=== PATIENT | male | born 1940 | race Two or more races ===

== ENCOUNTER 2018-11-17 08:14 | Emergency (ER) | payer MEDICARE, OTHER ==
[~2018-11-17] VITALS: Ht 177.8 cm; Wt 82.2 kg
[~2018-11-17 08:14] MED LIST: ASPI-955 PO; CARV3.122 PO; LEVO112T5 PO; METF500T PO; MULT-1074 PO; SIMV20TA PO
[2018-11-17 09:12] LABS: BASOPHILS # (AUTO) 0.1 X10'3 (0-0.2); BASOPHILS % (AUTO) 1.5 % (0-1); EOSINOPHILS # (AUTO) 0.3 X10'3 (0-0.9); EOSINOPHILS % (AUTO) 5.8 % (0-6); HEMATOCRIT 45.8 % (42.0-52.0); HEMOGLOBIN 15.3 g/dl (14.0-17.9); LYMPHOCYTES # (AUTO) 0.7 X10'3 (1.1-4.8); LYMPHOCYTES % (AUTO) 13.9 % (21-51); MEAN CORPUSCULAR HEMOGLOBIN 30.4 PG (27.0-31.0); MEAN CORPUSCULAR HGB CONC 33.4 % (33.0-36.5); MEAN CORPUSCULAR VOLUME 90.8 FL (78-98); MEAN PLATELET VOLUME 6.4 FL (7.4-10.4); MONOCYTES # (AUTO) 0.4 X10'3 (0-0.9); MONOCYTES % (AUTO) 8.8 % (2-12); NEUTROPHILS # (AUTO) 3.5 X10'3 (1.8-7.7); PLATELET COUNT 245 X10'3 (140-440); RED BLOOD COUNT 5.04 X10'6 (4.70-6.10); RED CELL DISTRIBUTION WIDTH 14.1 % (11.5-14.5); WHITE BLOOD COUNT 4.9 X10'3 (4.5-11.0)
[2018-11-17 09:29] LABS: PARTIAL THROMBOPLASTIN TIME 26 SECONDS (22-32); PROTHROMBIN TIME 10.3 SECONDS (9.0-12.0)
[2018-11-17 09:36] LABS: ALANINE AMINOTRANSFERASE 24 U/L (12-78); ALBUMIN 3.9 G/DL (3.4-5.0); ALBUMIN/GLOBULIN RATIO 1.1 (1.1-1.5); ALKALINE PHOSPHATASE 69 IU/L (46-116); ANION GAP 7 (8-16); ASPARTATE AMINO TRANSFERASE 22 U/L (10-37); BILIRUBIN,TOTAL 0.5 MG/DL (0.1-1.0); BLOOD UREA NITROGEN 20 MG/DL (7-18); CALCIUM 8.7 MG/DL (8.5-10.1); CHLORIDE 104 MMOL/L (99-107); CREATININE 0.87 MG/DL (0.60-1.10); GLUCOSE 108 MG/DL (70-104); POTASSIUM 4.6 MMOL/L (3.5-5.1); SODIUM 141 MMOL/L (135-145); TOTAL CARBON DIOXIDE 30.2 MMOL/L (24-32); TOTAL PROTEIN 7.3 G/DL (6.4-8.2); eGFR 84 ML/MIN
[2018-11-17 10:58] VITALS: BP 145/67
== END 2018-11-17 11:00 | disposition home or self-care (01) ==
LOC: ER 08:14
DX: I95.1 Orthostatic hypotension (principal); I25.10 Atherosclerotic heart disease of native coronary artery without angina pectoris; E11.9 Type 2 diabetes mellitus without complications; Z95.1 Presence of aortocoronary bypass graft; Z95.0 Presence of cardiac pacemaker; Z98.890 Other specified postprocedural states; Z79.82 Long term (current) use of aspirin; Z79.899 Other long term (current) drug therapy
CPT/HCPCS: 36415; 71045; 80053; 83880; 84484; 85025; 85610; 85730; 93005; 99284

== ENCOUNTER 2020-09-07 14:41 | Inpatient (IN) | payer MEDICARE, OTHER ==
[~2020-09-07] VITALS: Ht 182.9 cm; Wt 75.7 kg
--- NOTE | 2020-09-07 15:35 | NUR ---
INCONTINENT OF URINE PER DAUGHTER, PT WALKED TO THE [employer] COURSE AND DROVE HIM BACK AND COULD NOT WALK UP STAIRS DAUGHTER GAVE HIM A SPRITE, EMS BLOOD GLUCOSE 136 Addendum: 09/07/20 at 1537 by CCLIFFORD MEGHAN STRANGE [phone] PER DAUGHTER PATIENT TOOK 325 MG OF ASPIRIN AFTER GETTING HIM INTO THE HOUSE
[2020-09-07] MEDS ORDERED: normal saline 1000ml 1,000 ML IVB ONE (16:15)
[2020-09-07 16:24] LABS: CLARITY,URINE CLEAR (Clear); COLOR,URINE YELLOW (Yellow); GLUCOSE, URINE NEGATIVE (Neg); KETONES,URINE NEGATIVE (Neg); LEUKOCYTE ESTERASE ,URINE NEGATIVE (Neg); NITRITES, URINE NEGATIVE (Neg); OCCULT BLOOD,URINE SMALL (Neg); PH,URINE 5.5 (4.8-8.0); PROTEIN,URINE NEGATIVE (Neg); UROBILINOGEN,URINE 0.2 E.U/dL (0.2-1.0)
[2020-09-07 16:25] LABS: UA COLLECTION TYPE VOIDED
[2020-09-07] MEDS ORDERED: diltiazem 5mg/ml 5ml inj. IV ONE (16:25)
[2020-09-07 16:32] LABS: BASOPHILS # (AUTO) 0.1 X10'3 (0-0.2); BASOPHILS % (AUTO) 0.6 % (0-1); EOSINOPHILS # (AUTO) 0.3 X10'3 (0-0.9); HEMATOCRIT 42.4 % (42.0-52.0); HEMOGLOBIN 14.2 g/dl (14.0-17.9); LYMPHOCYTES # (AUTO) 0.6 X10'3 (1.1-4.8); LYMPHOCYTES % (AUTO) 5.5 % (21-51); MEAN CORPUSCULAR HEMOGLOBIN 31.1 PG (27.0-31.0); MEAN CORPUSCULAR HGB CONC 33.6 g/dL (33.0-36.5); MEAN CORPUSCULAR VOLUME 92.5 FL (78-98); MEAN PLATELET VOLUME 6.9 FL (7.4-10.4); MONOCYTES # (AUTO) 1.1 X10'3 (0-0.9); MONOCYTES % (AUTO) 9.7 % (2-12); NEUTROPHILS # (AUTO) 9.4 X10'3 (1.8-7.7); NEUTROPHILS % (AUTO) 81.2 % (42-75); PLATELET COUNT 161 X10'3 (140-440); RED BLOOD COUNT 4.58 X10'6 (4.70-6.10); RED CELL DISTRIBUTION WIDTH 13.8 % (11.5-14.5); WHITE BLOOD COUNT 11.6 X10'3 (4.5-11.0)
[2020-09-07] MEDS ORDERED: iohexol 350MG/ML 100ml bottle IV ONE (16:40)
[2020-09-07 16:42] LABS: BACTERIA,URINE NONE SEEN /HPF (Neg); MUCUS STRANDS NONE SEEN /LPF (Neg); RBC,URINE 0-2 /HPF (0-2); SQUAMOUS EPITHELIAL CELL,UR FEW /LPF (FEW); WBC,URINE NONE SEEN /HPF (0-4)
[2020-09-07 16:48] LABS: ALANINE AMINOTRANSFERASE 37 U/L (12-78); ALBUMIN 4.1 G/DL (3.4-5.0); ALBUMIN/GLOBULIN RATIO 1.3 (1.1-1.5); ALKALINE PHOSPHATASE 72 IU/L (46-116); ANION GAP 5 (8-16); ASPARTATE AMINO TRANSFERASE 43 U/L (10-37); BILIRUBIN,TOTAL 0.5 MG/DL (0.1-1.0); BLOOD UREA NITROGEN 17 MG/DL (7-18); BUN/CREATININE RATIO 17.7 (5.4-32.0); CALCIUM 8.8 MG/DL (8.5-10.1); CHLORIDE 104 MMOL/L (99-107); CREATININE 0.96 MG/DL (0.60-1.10); GLUCOSE 115 MG/DL (70-104); POTASSIUM 4.9 MMOL/L (3.5-5.1); SODIUM 140 MMOL/L (135-145); TOTAL CARBON DIOXIDE 30.7 MMOL/L (24-32); TOTAL PROTEIN 7.2 G/DL (6.4-8.2); eGFR 75 ML/MIN
[2020-09-07] MEDS ORDERED: LORazepam 2 mg/ml vial IV ONE ×2 (16:50→17:10)
[2020-09-07 16:51] LABS: TROPONIN I 0.16 NG/ML (0.0-0.05)
[2020-09-07] MEDS: aspirin 81mg tab.chew PO ONE ×2 (17:05→17:18)
[2020-09-07 17:45] LABS: ABG HCO3 24.7 mmol/L (22.0-26.0); ABG OXYGEN SATURATION 90.3 % (94-97); ABG PCO2 (T) 44.5 mmHg (35.0-48.0); ABG PO2 (T) 57.4 mmHg (75.0-100.0); ALLEN'S TEST POSITIVE; FMetHb 0.1 % (0.0-1.5); FO2Hb 89.3 % (94-97); PATIENT TEMPERATURE 36.8; TOTAL HEMOGLOBIN 14.7 G/dl (14.0-18.0)
[2020-09-07] MEDS ORDERED: DONE10TA7 PO (17:45)
[2020-09-07] MEDS ORDERED: ATOR40TA7 PO (17:45)
[2020-09-07] MEDS ORDERED: LEVO100T PO (17:45)
[2020-09-07] MEDS ORDERED: ESCI10TA61 PO (17:45)
[2020-09-07] MEDS ORDERED: CHOL100017 PO (17:45)
[2020-09-07] MEDS ORDERED: ASPI-100 PO (17:45)
[2020-09-07] MEDS ORDERED: heparin 10,000 units/1 ML INJ IV ONE ×3 (18:10→23:10)
[2020-09-07] MEDS ORDERED: heparin 10,000 units/1 ML INJ IV PRN ×2 (18:10→23:10)
[2020-09-07] MEDS ORDERED: heparin 25,000 UNIT/250ml bag 250 ML IV SCH (18:10)
--- NOTE | 2020-09-07 18:24 | NUR ---
Pt in CT, daughter at bedside.
--- NOTE | 2020-09-07 18:48 | NUR ---
adriane gunn at bedside talking with pt and his family member about plan of care. Heparin gtt and bolus started per dvt protocol. coags ordered.
[2020-09-07] MEDS ORDERED: morphine 4 MG/ML inj SYRINge IV ONE (18:55)
--- NOTE | 2020-09-07 18:55 | NUR ---
Patient back from CT. Ashley'ts daughter at bedside explains it seems patient appears to be in pain. Consulted Darren DEE for medication.
--- NOTE | 2020-09-07 19:00 | NUR ---
Patient audible rales with respiration. RT contacted for Bipap placement.
[2020-09-07 19:05] LABS: PARTIAL THROMBOPLASTIN TIME 30 SECONDS (22-32)
[2020-09-07] MEDS ORDERED: temazepam 15mg capsule PO PRN (21:00)
[2020-09-07 21:40] LABS: ABG BASE EXCESS 0.7 mmol/L (-2.0-2.0); ABG HCO3 26.6 mmol/L (22.0-26.0); ABG OXYGEN SATURATION 95.9 % (94-97); ABG PCO2 (T) 47.6 mmHg (35.0-48.0); ABG PO2 (T) 84.6 mmHg (75.0-100.0); ALLEN'S TEST POSITIVE; FCOHb 0.8 % (0.0-3.9); FO2Hb 95.1 % (94-97); PATIENT TEMPERATURE 37.1; RESPIRATORY RATE 16 b/min; TOTAL HEMOGLOBIN 13.5 G/dl (14.0-18.0)
--- NOTE | 2020-09-07 22:39 | NUR ---
Pt daughter gone home for the evening. Patient continues on Bipap with adjustments made for comfort. Patient appears to be sleeping, resting comfortably. Patient also had brief changed and clean gown.
[2020-09-07] MEDS ORDERED: bisacodyl 10mg suppository rectal RC PRN (23:10)
[2020-09-07] MEDS ORDERED: magnesium 4gm in 100ml NS 100 ML IV PRN (23:10)
[2020-09-07] MEDS ORDERED: nitroGLYCERIN 0.4mg SUBLingual tab SL PRN (23:10)
[2020-09-07] MEDS ORDERED: magnesium Cl slow-release 64mg tablet PO PRN (23:10)
[2020-09-07] MEDS ORDERED: ipratropium/albuterol 3ml nebule NEB PRN (23:10)
[2020-09-07] MEDS ORDERED: HYDROcodone/acetaminophen 10/325mg tab PO PRN (23:10)
[2020-09-07] MEDS ORDERED: HYDROcodone/acetaminophen 5mg/325mg tablet PO PRN (23:10)
[2020-09-07] MEDS ORDERED: metoprolol tartrate 1mg/ml inj IV PRN (23:10)
[2020-09-07] MEDS ORDERED: dextrose ORAL solution 15 GM/59 ML bottle PO PRN ×2 (23:10)
[2020-09-07] MEDS ORDERED: magnesium 2GM in 50ml NS 50 ML IV PRN (23:10)
[2020-09-07] MEDS ORDERED: MESSAGE TO PHARMACY PO ONE (23:10)
[2020-09-07] MEDS ORDERED: magnesium hydroxide 30ml (MOM) UD suspension PO PRN (23:10)
[2020-09-07] MEDS ORDERED: potassium CL 10mEq/100ml bag 100 ML IV PRN ×2 (23:10)
[2020-09-07] MEDS ORDERED: acetaminophen 325mg tablet PO PRN ×2 (23:10)
[2020-09-07] MEDS ORDERED: glucagon, human recombinant 1mg kit SUBCUT PRN (23:10)
[2020-09-07] MEDS ORDERED: ondansetron/PF 4mg/2ml inj IV PRN (23:10)
[2020-09-07] MEDS ORDERED: dextrose 50%-water 50ml dispensing syringe IV PRN ×2 (23:10)
[2020-09-07] MEDS ORDERED: aminophylline 250mg/10ml inj. IV PRN (23:10)
[2020-09-07] MEDS ORDERED: potassium Cl 20 mEq SR tablet PO PRN (23:10)
[2020-09-07] MEDS ORDERED: CefTRIAXone/D5W-Rocephin 1gm 50 ML IV SCH (23:10)
[2020-09-07] MEDS ORDERED: insulin Lispro (HumaLOG) vial - multi-dose SQ SCH (23:10)
[2020-09-07] MEDS ORDERED: mag hydrox/Alum hydrox/simeth 30ml oral suspension PO PRN (23:10)
[2020-09-07 23:42] LABS: HEMOGLOBIN A1C 6.2 % (4.5-6.2)
--- NOTE | 2020-09-07 23:51 | NUR ---
Lab called to advise that pt's coagulation labs are unreadable. Lab suggests lowering Heparin and redraw. Dr. Josue consulted. He advised to lower the Heparing dose temporarily and redraw the labs.
--- NOTE | 2020-09-07 23:54 | NUR ---
Pt's heparin drip lowered to 1000u/h
[2020-09-08] VITALS (12 sets, daily range): BP systolic 88–116; BP diastolic 33–62
--- NOTE | 2020-09-08 02:55 | NUR ---
Changed pt's brief and placed in hospital bed for comfort. Pt continues on Bipap
[2020-09-08 03:19] LABS: BASOPHILS # (AUTO) 0.1 X10'3 (0-0.2); BASOPHILS % (AUTO) 0.5 % (0-1); EOSINOPHILS # (AUTO) 0.2 X10'3 (0-0.9); EOSINOPHILS % (AUTO) 1.9 % (0-6); HEMATOCRIT 42.4 % (42.0-52.0); LYMPHOCYTES # (AUTO) 0.6 X10'3 (1.1-4.8); LYMPHOCYTES % (AUTO) 4.7 % (21-51); MEAN CORPUSCULAR HEMOGLOBIN 30.4 PG (27.0-31.0); MEAN CORPUSCULAR VOLUME 92.1 FL (78-98); MEAN PLATELET VOLUME 6.9 FL (7.4-10.4); MONOCYTES # (AUTO) 1.1 X10'3 (0-0.9); MONOCYTES % (AUTO) 9.5 % (2-12); NEUTROPHILS % (AUTO) 83.4 % (42-75); PLATELET COUNT 150 X10'3 (140-440); RED CELL DISTRIBUTION WIDTH 13.5 % (11.5-14.5)
--- NOTE | 2020-09-08 03:34 | NUR ---
CHECKED PT AND FOUND TEMP 101.8 AXILLARY, REMOVED BLANKETS AND CHECKED AGAIN IN 20 MINUTES. PT TEMP 102 AXILLARY. CALLED PHARMACY FOR ROCEPHIN ORDER RENEWAL AND ORDERED TYLENOL SUPPOSETORY PATIENT IS CONFUSED DUE TO DEMENTIA.
[2020-09-08] MEDS ORDERED: acetaminophen 325mg rectal suppository RC ONE (03:35)
[2020-09-08 03:42] LABS: ALANINE AMINOTRANSFERASE 31 U/L (12-78); ALBUMIN/GLOBULIN RATIO 1.2 (1.1-1.5); ALKALINE PHOSPHATASE 60 IU/L (46-116); ANION GAP 9 (8-16); ASPARTATE AMINO TRANSFERASE 27 U/L (10-37); BILIRUBIN,TOTAL 0.8 MG/DL (0.1-1.0); BLOOD UREA NITROGEN 14 MG/DL (7-18); CALCIUM 8.6 MG/DL (8.5-10.1); CHLORIDE 105 MMOL/L (99-107); CHOL/HDL RATIO 1.8 (0.00-4.99); CHOLESTEROL 112 MG/DL (0-200); CREATININE 1.08 MG/DL (0.60-1.10); GLUCOSE 114 MG/DL (70-104); HDL CHOLESTEROL 61 MG/DL (35-60); LDL CHOLESTEROL 46 MG/DL (50-100); MAGNESIUM 1.7 MG/DL (1.5-2.4); POTASSIUM 4.1 MMOL/L (3.5-5.1); SODIUM 142 MMOL/L (135-145); TOTAL CARBON DIOXIDE 28.1 MMOL/L (24-32); TOTAL PROTEIN 7.3 G/DL (6.4-8.2); TRIGLYCERIDES 27 MG/DL (20-135); eGFR 65 ML/MIN
[2020-09-08] MEDS ORDERED: acetaminophen 650mg rectal suppository RC ONE (03:45)
[2020-09-08] MEDS: CefTRIAXone/D5W-Rocephin 1gm 50 ML IV SCH (03:49)
[2020-09-08] MEDS ORDERED: regadenoson 0.4mg/5ml syringe IV ONE (06:00)
--- NOTE | 2020-09-08 06:14 | NUR ---
Problems reprioritized. Patient report given, questions answered & plan of care reviewed with LOKESH Sanon.
--- NOTE | 2020-09-08 07:08 | NUR ---
Patient in room PCU 3023. I have received report from LOKESH Cordova and had the opportunity to ask questions and assume patient care.
--- NOTE | 2020-09-08 07:11 | NUR ---
Catrachito Cordova in room PCU 3023. I have received report from and had the opportunity to ask questions and assume patient care.
[2020-09-08] MEDS: K and/or MAG REPLACEMENT MC SCH ×2 (08:00→20:00)
[2020-09-08] MEDS: metoprolol tartrate 12.5mg (1/2 tablet) PO SCH ×2 (08:00→20:00)
[2020-09-08] MEDS: carVEDilol 3.125mg tablet PO SCH ×2 (08:00→20:41)
[2020-09-08] MEDS: furosemide 40mg/4ml inj IV SCH ×2 (08:00→20:00)
[2020-09-08] MEDS ORDERED: aspirin 325mg tablet PO SCH (08:30)
[2020-09-08] MEDS: levoTHYROXINE 100mcg tablet PO SCH (08:50)
[2020-09-08] MEDS: ESCITALOPRAM OXALATE 5 MG TABLET PO SCH (08:51)
[2020-09-08] MEDS: donepezil 5mg tablet PO SCH (08:52)
[2020-09-08] MEDS: atorvastatin 20mg tablet PO SCH (08:52)
[2020-09-08] MEDS: heparin 25,000 UNIT/250ml bag 250 ML IV SCH ×2 (13:01→20:28)
--- NOTE | 2020-09-08 19:01 | NUR ---
Problems reprioritized. Patient report given, questions answered & plan of care reviewed with LOKESH Mendez.
[2020-09-08] MEDS: lactobacillus rhamnosus 10,000 MMU CELLS/CAPSULE PO SCH (20:42)
[2020-09-08] MEDS: insulin glargine (Lantus) pen - multi-dose SQ SCH (21:00)
[2020-09-09 02:00] VITALS: BP 109/59
[2020-09-09 03:19] LABS: BASOPHILS % (AUTO) 0.5 % (0-1); EOSINOPHILS # (AUTO) 0.4 X10'3 (0-0.9); EOSINOPHILS % (AUTO) 4.1 % (0-6); HEMATOCRIT 40.8 % (42.0-52.0); HEMOGLOBIN 13.7 g/dl (14.0-17.9); LYMPHOCYTES # (AUTO) 0.9 X10'3 (1.1-4.8); LYMPHOCYTES % (AUTO) 9.8 % (21-51); MEAN CORPUSCULAR HEMOGLOBIN 30.6 PG (27.0-31.0); MEAN CORPUSCULAR HGB CONC 33.6 g/dL (33.0-36.5); MEAN CORPUSCULAR VOLUME 90.9 FL (78-98); MEAN PLATELET VOLUME 7.2 FL (7.4-10.4); MONOCYTES # (AUTO) 0.8 X10'3 (0-0.9); MONOCYTES % (AUTO) 9.4 % (2-12); NEUTROPHILS # (AUTO) 6.9 X10'3 (1.8-7.7); NEUTROPHILS % (AUTO) 76.2 % (42-75); PLATELET COUNT 159 X10'3 (140-440); RED BLOOD COUNT 4.49 X10'6 (4.70-6.10); RED CELL DISTRIBUTION WIDTH 13.4 % (11.5-14.5)
[2020-09-09 03:24] LABS: ALANINE AMINOTRANSFERASE 25 U/L (12-78); ALBUMIN 3.5 G/DL (3.4-5.0); ALBUMIN/GLOBULIN RATIO 1.1 (1.1-1.5); ALKALINE PHOSPHATASE 53 IU/L (46-116); ANION GAP 9 (8-16); ASPARTATE AMINO TRANSFERASE 25 U/L (10-37); BILIRUBIN,TOTAL 0.9 MG/DL (0.1-1.0); BLOOD UREA NITROGEN 20 MG/DL (7-18); BUN/CREATININE RATIO 17.5 (5.4-32.0); CALCIUM 8.6 MG/DL (8.5-10.1); CHLORIDE 105 MMOL/L (99-107); CREATININE 1.14 MG/DL (0.60-1.10); GLUCOSE 92 MG/DL (70-104); MAGNESIUM 2.1 MG/DL (1.5-2.4); POTASSIUM 3.6 MMOL/L (3.5-5.1); SODIUM 143 MMOL/L (135-145); TOTAL PROTEIN 6.8 G/DL (6.4-8.2); eGFR 61 ML/MIN
[2020-09-09] MEDS: CefTRIAXone/D5W-Rocephin 1gm 50 ML IV SCH (04:31)
[2020-09-09 06:00] VITALS: BP 120/61
--- NOTE | 2020-09-09 06:56 | NUR ---
Patient in room PCU 3023. I have received report from LOKESH Mendez and had the opportunity to ask questions and assume patient care.
[2020-09-09] MEDS: K and/or MAG REPLACEMENT MC SCH ×2 (08:00→20:00)
[2020-09-09] MEDS: furosemide 40mg/4ml inj IV SCH ×2 (08:29→19:41)
[2020-09-09] MEDS: atorvastatin 20mg tablet PO SCH (08:30)
[2020-09-09] MEDS: donepezil 5mg tablet PO SCH (08:30)
[2020-09-09] MEDS: ESCITALOPRAM OXALATE 5 MG TABLET PO SCH (08:30)
[2020-09-09] MEDS: carVEDilol 3.125mg tablet PO SCH ×2 (08:30→19:53)
[2020-09-09] MEDS: lactobacillus rhamnosus 10,000 MMU CELLS/CAPSULE PO SCH ×2 (08:30→19:41)
[2020-09-09] MEDS: levoTHYROXINE 100mcg tablet PO SCH (08:31)
[2020-09-09] MEDS: metoprolol tartrate 12.5mg (1/2 tablet) PO SCH ×2 (08:31→19:53)
[2020-09-09] MEDS: aspirin 81mg tablet.DR PO SCH (08:38)
[2020-09-09] MEDS: heparin 25,000 UNIT/250ml bag 250 ML IV SCH ×3 (08:46→19:51)
[2020-09-09 11:00] VITALS: BP 90/49
[2020-09-09 15:00] VITALS: BP 116/71
--- NOTE | 2020-09-09 17:11 | NUR ---
Pt agitated and confused. informed MD. PAGER ID: [phone] MESSAGE: Jessica. [facility] [id number]. Pt: Yolanda. KASSY; 9573-B Pt has increased confusion and agitation. removing Tele and threatening to leave the hospital. can we get Ativan to help him calm down? thanks New order for Ativan PRN.
[2020-09-09] MEDS: LORazepam 0.5 MG tablet PO PRN (17:23)
[2020-09-09 18:00] VITALS: BP 108/64
--- NOTE | 2020-09-09 18:32 | NUR ---
Problems reprioritized. Patient report given, questions answered & plan of care reviewed with LOKESH Guy.
[2020-09-09] MEDS: insulin glargine (Lantus) pen - multi-dose SQ SCH (21:00)
[2020-09-09 22:00] VITALS: BP 137/75
[2020-09-09] MEDS ORDERED: ziprasidone IM 20mg inj **IM only IM PRN (22:30)
--- NOTE | 2020-09-09 22:46 | NUR ---
Patient agitated and confused. continues to pull at lines. verbally aggressive with tech in room. Informed Dr. Quevedo: ordered restraints and Geodon 10mg IM q6 PRN for agitation. will continue to moniter
[2020-09-10 02:00] VITALS: BP 145/94
[2020-09-10] MEDS: CefTRIAXone/D5W-Rocephin 1gm 50 ML IV SCH (02:17)
[2020-09-10 03:37] LABS: BASOPHILS % (AUTO) 0.7 % (0-1); EOSINOPHILS # (AUTO) 0.4 X10'3 (0-0.9); EOSINOPHILS % (AUTO) 5.9 % (0-6); HEMATOCRIT 46.6 % (42.0-52.0); HEMOGLOBIN 15.6 g/dl (14.0-17.9); LYMPHOCYTES % (AUTO) 14.5 % (21-51); MEAN CORPUSCULAR HEMOGLOBIN 30.7 PG (27.0-31.0); MEAN CORPUSCULAR HGB CONC 33.4 g/dL (33.0-36.5); MEAN CORPUSCULAR VOLUME 91.9 FL (78-98); MEAN PLATELET VOLUME 7.3 FL (7.4-10.4); MONOCYTES # (AUTO) 0.8 X10'3 (0-0.9); MONOCYTES % (AUTO) 10.9 % (2-12); NEUTROPHILS # (AUTO) 4.8 X10'3 (1.8-7.7); PLATELET COUNT 177 X10'3 (140-440); RED BLOOD COUNT 5.06 X10'6 (4.70-6.10); RED CELL DISTRIBUTION WIDTH 13.6 % (11.5-14.5); WHITE BLOOD COUNT 7.1 X10'3 (4.5-11.0)
[2020-09-10] MEDS: LORazepam 0.5 MG tablet PO PRN (03:42)
[2020-09-10 03:48] LABS: ALANINE AMINOTRANSFERASE 27 U/L (12-78); ALBUMIN 4.1 G/DL (3.4-5.0); ALKALINE PHOSPHATASE 64 IU/L (46-116); ANION GAP 9 (8-16); ASPARTATE AMINO TRANSFERASE 30 U/L (10-37); BILIRUBIN,TOTAL 0.8 MG/DL (0.1-1.0); BLOOD UREA NITROGEN 24 MG/DL (7-18); BUN/CREATININE RATIO 19.7 (5.4-32.0); CALCIUM 9.2 MG/DL (8.5-10.1); CHLORIDE 99 MMOL/L (99-107); CREATININE 1.22 MG/DL (0.60-1.10); GLUCOSE 99 MG/DL (70-104); MAGNESIUM 2.1 MG/DL (1.5-2.4); POTASSIUM 3.3 MMOL/L (3.5-5.1); SODIUM 139 MMOL/L (135-145); TOTAL CARBON DIOXIDE 30.9 MMOL/L (24-32); TOTAL PROTEIN 8.2 G/DL (6.4-8.2); eGFR 57 ML/MIN
[2020-09-10] MEDS: heparin 25,000 UNIT/250ml bag 250 ML IV SCH ×2 (04:12→12:47)
[2020-09-10 07:12] VITALS: BP 120/55
[2020-09-10] MEDS: K and/or MAG REPLACEMENT MC SCH ×2 (08:00→19:51)
[2020-09-10] MEDS: furosemide 40mg/4ml inj IV SCH ×2 (08:17→19:59)
[2020-09-10] MEDS: aspirin 81mg tablet.DR PO SCH (08:18)
[2020-09-10] MEDS: donepezil 5mg tablet PO SCH (08:18)
[2020-09-10] MEDS: atorvastatin 20mg tablet PO SCH (08:18)
[2020-09-10] MEDS: levoTHYROXINE 100mcg tablet PO SCH (08:18)
[2020-09-10] MEDS: lactobacillus rhamnosus 10,000 MMU CELLS/CAPSULE PO SCH ×2 (08:18→19:59)
[2020-09-10] MEDS: ESCITALOPRAM OXALATE 5 MG TABLET PO SCH (08:18)
[2020-09-10] MEDS: potassium Cl 20 mEq SR tablet PO PRN ×3 (08:18→17:50)
[2020-09-10] MEDS: metoprolol tartrate 12.5mg (1/2 tablet) PO SCH (08:18)
[2020-09-10] MEDS: carVEDilol 3.125mg tablet PO SCH ×2 (08:18→20:00)
[2020-09-10 11:00] VITALS: BP 129/55
[2020-09-10] MEDS ORDERED: ondansetron 4mg rapidly disintigrating tab PO PRN (14:15)
[2020-09-10 16:15] VITALS: BP 97/54
--- NOTE | 2020-09-10 17:55 | NUR ---
patient does not have a montoya catheter. Addendum: 09/10/20 at 1756 by Prudence Denis RN Amended: Links added.
[2020-09-10 18:00] VITALS: BP_SYST 114; BP_DIAS 47; BP_DIAS 67
--- NOTE | 2020-09-10 18:14 | NUR ---
Problems reprioritized. Patient report given, questions answered & plan of care reviewed with LOKESH Wilks.
[2020-09-10] MEDS: insulin glargine (Lantus) pen - multi-dose SQ SCH (19:52)
[2020-09-10] MEDS: heparin, porcine 5000 units/ml vial SQ SCH (20:00)
[2020-09-10 22:12] VITALS: BP 116/63
[2020-09-11 02:05] VITALS: BP 144/61
--- NOTE | 2020-09-11 06:19 | NUR ---
Patient in room PCU 3023. I have received report from LOKESH Wilks and had the opportunity to ask questions and assume patient care.
--- NOTE | 2020-09-11 06:24 | NUR ---
Problems reprioritized. Patient report given, questions answered & plan of care reviewed with LOKESH Treadwell.
[2020-09-11 06:29] LABS: BASOPHILS # (AUTO) 0.1 X10'3 (0-0.2); BASOPHILS % (AUTO) 0.8 % (0-1); EOSINOPHILS # (AUTO) 0.3 X10'3 (0-0.9); EOSINOPHILS % (AUTO) 4.3 % (0-6); HEMATOCRIT 45.3 % (42.0-52.0); HEMOGLOBIN 15.5 g/dl (14.0-17.9); LYMPHOCYTES % (AUTO) 13.3 % (21-51); MEAN CORPUSCULAR HEMOGLOBIN 31.1 PG (27.0-31.0); MEAN CORPUSCULAR HGB CONC 34.3 g/dL (33.0-36.5); MEAN CORPUSCULAR VOLUME 90.9 FL (78-98); MONOCYTES # (AUTO) 0.8 X10'3 (0-0.9); MONOCYTES % (AUTO) 11.3 % (2-12); NEUTROPHILS # (AUTO) 5.1 X10'3 (1.8-7.7); NEUTROPHILS % (AUTO) 70.3 % (42-75); PLATELET COUNT 225 X10'3 (140-440); RED BLOOD COUNT 4.99 X10'6 (4.70-6.10); RED CELL DISTRIBUTION WIDTH 13.4 % (11.5-14.5); WHITE BLOOD COUNT 7.2 X10'3 (4.5-11.0)
[2020-09-11 06:40] VITALS: BP 109/53
[2020-09-11 06:43] LABS: ALANINE AMINOTRANSFERASE 23 U/L (12-78); ALBUMIN 3.9 G/DL (3.4-5.0); ALKALINE PHOSPHATASE 69 IU/L (46-116); ANION GAP 9 (8-16); ASPARTATE AMINO TRANSFERASE 27 U/L (10-37); BILIRUBIN,TOTAL 0.8 MG/DL (0.1-1.0); BLOOD UREA NITROGEN 30 MG/DL (7-18); BUN/CREATININE RATIO 22.6 (5.4-32.0); CALCIUM 9.4 MG/DL (8.5-10.1); CHLORIDE 103 MMOL/L (99-107); CREATININE 1.33 MG/DL (0.60-1.10); GLUCOSE 108 MG/DL (70-104); MAGNESIUM 2.2 MG/DL (1.5-2.4); POTASSIUM 4.5 MMOL/L (3.5-5.1); SODIUM 143 MMOL/L (135-145); TOTAL CARBON DIOXIDE 31.2 MMOL/L (24-32); TOTAL PROTEIN 7.7 G/DL (6.4-8.2); eGFR 51 ML/MIN
[2020-09-11] MEDS: donepezil 5mg tablet PO SCH (07:37)
[2020-09-11] MEDS: levoTHYROXINE 100mcg tablet PO SCH (07:38)
[2020-09-11] MEDS: lactobacillus rhamnosus 10,000 MMU CELLS/CAPSULE PO SCH (07:38)
[2020-09-11] MEDS: carVEDilol 3.125mg tablet PO SCH (07:38)
[2020-09-11] MEDS: heparin, porcine 5000 units/ml vial SQ SCH (07:40)
[2020-09-11] MEDS: K and/or MAG REPLACEMENT MC SCH (08:00)
[2020-09-11] MEDS: ESCITALOPRAM OXALATE 5 MG TABLET PO SCH (08:00)
[2020-09-11] MEDS: furosemide 40mg/4ml inj IV SCH (08:00)
[2020-09-11] MEDS ORDERED: atorvastatin 20mg tablet PO SCH (08:00)
[2020-09-11] MEDS ORDERED: aspirin 81mg tablet.DR PO SCH (08:30)
[2020-09-11 11:00] VITALS: BP 109/53
--- NOTE | 2020-09-11 13:03 | NUR ---
Spoke to the patient's daughter and KEDAR Hernandez at [phone]. She is requesting that Talita lópez will not be contacted, as she is not related to the family.
--- NOTE | 2020-09-11 13:36 | NUR ---
PAGER ID: [phone] MESSAGE: Re: thomas Guerrero. [id number]. Spoke to patient's Daughter and Mary THACKER. Willing to pick patient up today. PT cleared patient. Thanks. [phone].
[2020-09-11] MEDS ORDERED: ASPI-1071 PO (14:36)
[2020-09-11] MEDS ORDERED: FURO20TA4 PO (14:38)
--- NOTE | 2020-09-11 16:00 | NUR ---
Patient stable for discharge per md orders. IV discontinued with cannula intact. Discharge instructions and strict return precautions gone over in detail with patient's POA/daughter. Patient prescriptions sent [facility] in [facility]. patient wheeled to parking lot in front of hospital accompanied by RN. Armbands cut at time of discharge. Patient's daugher was awaiting in private vehicle; vehicle seen leaving premise
== END 2020-09-11 16:00 | disposition home or self-care (01) | DRG 280 ==
LOC: ER 14:41 → ED HOLD 23:07 → PCU 3S 09-08 05:30
PROVIDERS: ADMIT Family Medicine; ATTEND Family Medicine
PROC: B32T1ZZ Computerized Tomography (CT Scan) of Left Pulmonary Artery using Low Osmolar Contrast (ICD-10-PCS; principal; 2020-09-07)
PROC: B3201ZZ Computerized Tomography (CT Scan) of Thoracic Aorta using Low Osmolar Contrast (ICD-10-PCS; 2020-09-07)
PROC: B32S1ZZ Computerized Tomography (CT Scan) of Right Pulmonary Artery using Low Osmolar Contrast (ICD-10-PCS; 2020-09-07)
PROC: 4A02XM4 Measurement of Cardiac Total Activity, External Approach (ICD-10-PCS; 2020-09-08)
PROC: 3E073KZ Introduction of Other Diagnostic Substance into Coronary Artery, Percutaneous Approach (ICD-10-PCS; 2020-09-08)
DX: I50.23 Acute on chronic systolic (congestive) heart failure (principal); G93.41 Metabolic encephalopathy; I21.A1 Myocardial infarction type 2; J96.01 Acute respiratory failure with hypoxia; E03.9 Hypothyroidism, unspecified; E78.5 Hyperlipidemia, unspecified; F03.90 Unspecified dementia, unspecified severity, without behavioral disturbance, psychotic disturbance, mood disturbance, and anxiety; E55.9 Vitamin D deficiency, unspecified; D72.829 Elevated white blood cell count, unspecified; E11.9 Type 2 diabetes mellitus without complications; I25.10 Atherosclerotic heart disease of native coronary artery without angina pectoris; F32.9 Major depressive disorder, single episode, unspecified; Z20.828 Contact with and (suspected) exposure to other viral communicable diseases; Z95.1 Presence of aortocoronary bypass graft; Z95.0 Presence of cardiac pacemaker
CPT/HCPCS: 36415; 36600; 71045; 71275; 78452; 80053; 80061; 81001; 82803; 82948; 83036; 83605; 83735; 83880; 84145; 84443; 84484; 85018; 85025; 85610; 85730; 87040; 87081; 87635; 93005; 93017; 93306; 93308; 94660; 94760; 96374; 96375; 99285; A9500; C9803; G0378; J0696; J1644; J1815; J1940; J2060; J2270; J2785; J3486; J3490; J7030; Q9967